=== PATIENT | male | born 1955 | race Caucasian/White ===

== ENCOUNTER → 2016-11-02 | Outpatient (CLI) | payer MEDICAID ==
[~2016-11-02] MED LIST: IOPAMIDOL (ISOVUE-300) 100 ML BTL IV ONE
== END ==
LOC: FIMAGING 14:35
PROVIDERS: ATTEND Internal Medicine Infectious Disease
DX: J01.00 Acute maxillary sinusitis, unspecified (principal); J43.2 Centrilobular emphysema; M47.892 Other spondylosis, cervical region
CPT/HCPCS: Q9967

== ENCOUNTER 2017-05-13 12:10 | Emergency (ER) | payer MEDICAID ==
--- NOTE | 2017-05-13 12:32 | EDPHY ---
H & P Time Seen by Provider: 05/13/17 12:17 HPI/ROS: Chief complaint. Back pain HPI. 7-year-old male with recurrent and chronic low back pain here with low back pain for 2 days. He was stretching and felt a snap in his right lower back. He describes the pain as stabbing. No radiation to his legs or leg weakness. No bowel or bladder symptoms. 3 previous back surgeries. He notes that his right foot is always numb and has been numb since before his last surgery in 1996. He is on chronic morphine. No fever.hurts to walk ROS Constitutional. no fever/chills, no weakness Eyes. no problems with vision ENT. no sore throat, no nasal drainage Cardiovascular. no chest pain Respiratory. no shortness of breath, no cough Abdominal. no abdominal pain, no nausea/vomiting, no diarrhea . no problems urinating MS. right lower back pain Skin. no rash Lymph. no swollen glands Neuro. Hurts to walk Past Medical/Surgical History: Chronic back pain with previous back surgeries. Hypertension Social History: Single, daily smoker, no alcohol Smoking Status: Heavy smoker Physical Exam: General Appearance: Alert well-developed male mild distress vital signs are stable Eyes: Pupils equal and round no pallor or injection. ENT, Mouth: Mucous membranes are moist. Respiratory: There are no retractions, lungs are clear to auscultation. Cardiovascular: Regular rate and rhythm. Gastrointestinal: Abdomen is soft and nontender, no masses, bowel sounds normal. Neurological: Awake and alert, sensory and motor exams grossly normal. Straight leg raising negative at both sides. Deep tendon reflexes are symmetrical. Great toe strength normal Skin: Warm and dry, no rashes. Musculoskeletal: Neck is supple nontender. Tender to palpation in the L1-L2 area on the right. No surface trauma. Extremities symmetrical, full range of motion. Psychiatric: Patient is oriented X 3, there is no agitation. Allergies/Adverse Reactions: acetaminophen [From Tylenol] Allergy (Intermediate, Verified 07/26/16 11:45) Vomiting Home Medications: Medication Instructions Recorded Cyclobenzaprine [Flexeril 10 MG 10 mg PO TID 07/26/16 (*)] Albuterol [Proventil Inhaler HFA 2 puffs IH Q4HRS PRN #1 mdi 08/17/16 (*)] Bacitracin Ointment 1 tania TP BID 30 Days pkt 08/17/16 DAPTOmycin [Cubicin 500mg vial (*)] 450 mg IV DAILY #0 vial 08/17/16 Fluconazole [Diflucan (*)] 400 mg PO DAILY #14 tab 08/17/16 Lisinopril [Zestril 5 mg (*)] 5 mg PO DAILY #30 tab 08/17/16 Naloxone HCl [Narcan] 0 mg IVP PRN PRN #7 inj 08/17/16 Nicotine [Nicoderm Cq 21 mg (*)] 21 mg TD DAILY #30 patch 08/17/16 Polyethylene Glycol 3350 [Miralax 17 gm PO DAILY PRN #20 pkt 08/17/16 17 gm (*)] Sennosides/Docusate Sodium 1 - 2 tab PO BID #60 tab 08/17/16 [Senokot-S] Sodium Cl Nasal Gel [[place] Saline 1 tania TP TID PRN 30 Days gel 08/17/16 Nasal Gel] clonazePAM [Klonopin (*)] 0.5 mg PO BID #60 tab 08/17/16 morphINE IR [morphINE IR 15 mg (*)] 15 - 30 mg PO Q4HRS PRN #60 tab 08/17/16 morphINE SR [MS Contin/Oramorph SR 60 mg PO BID #60 tab 08/17/16 30 mg (*)] oxyCODONE IR [Oxycodone Ir (*)] 5 mg PO Q6H 30 Days tab 08/17/16 CYCLOBENZAPRINE HCL [Flexeril] 5 mg PO TIDPRN PRN #10 tab 05/13/17 Lidocaine 5% [Lidoderm 5% Patch 1 ea TD DAILY #3 patch 05/13/17 (*)] Medical Decision Making Procedures: IM Toradol and lidocaine patch ED Course/Re-evaluation: Re-evaluation patient is stable. He and I discussed treatment plan including criteria for return importance of follow-up and further evaluation. He expresses understanding and agreement Differential Diagnosis: No evidence for cauda equina syndrome or radiculopathy. This is likely muscular strain. Departure - Departure Disposition: Home, Routine, Self-Care Clinical Impression: Acute lumbar myofascial strain Qualifiers: Encounter type: initial encounter Qualified Code(s): S39.012A - Strain of muscle, fascia and tendon of lower back, initial encounter Condition: Good Instructions: Low Back Strain (ED) Additional Instructions: Continue your regularly prescribed morphine. Ibuprofen 600 mg every 6 hours as needed for pain in addition. Lidocaine patch. Flexeril as muscle relaxer. Return for leg weakness or bowel or bladder symptoms. Follow up with Neurosurgery in 2-3 days if not improving Referrals: Patient,NotPresent [Primary Care Provider] - As per Instructions Oswald Valdes MD [Medical Doctor] - 2-3 days, if not improved Prescriptions: CYCLOBENZAPRINE HCL [Flexeril] 5 mg PO TIDPRN PRN #10 tab PRN Reason: Spasms Lidocaine 5% [Lidoderm 5% Patch (*)] 1 ea TD DAILY #3 patch
[2017-05-13] MEDS ORDERED: KETOROLAC 15 MG/1 ML SDV IM ONE (12:51)
[2017-05-13] MEDS ORDERED: LIDOCAINE 5% 1 EA PATCH TD ONE (12:51)
[2017-05-13 13:48] VITALS: BP 117/81; PULSE 81; RESP 16; O2SAT 94
[2017-05-13] MEDS ORDERED: PATCH REMOVAL 1 EA PATCH TD SCH (21:00)
--- NOTE | 2017-05-14 17:06 | ASDISCHSUM ---
Discharge Information Plan Status:SNF Medically Cleared to Leave: Discharge Date: CM D/C Disposition: ADT D/C Disposition:Home, Routine, Self-Care Projected Discharge Date: Transportation at D/C: Discharge Delay Reason: Follow-Up Date: Discharge Slot: Final Diagnosis: Placement Information Patient Contact Information Contact Name:NAIFZENAIDA Relationship: Address: Home Phone: Work Phone: City: Alternate Phone: [email or web address] Code: Email: Financial Information Financial Class: Primary Plan Desc:[employer] Primary Plan Number:[id number] Secondary Plan Desc: Secondary Plan Number: Assessment Information Intervention Information Intervention Type:Transportation Date of Service:05/13/2017 01:59 PM Patient Type:Emergency Room Staff Member:Sean Alaniz Hours: Discipline: Severity: Comment:
== END 2017-05-13 13:45 | disposition home or self-care (01) ==
LOC: EDUNIT#
DX: S39.012A Strain of muscle, fascia and tendon of lower back, initial encounter (principal); F17.200 Nicotine dependence, unspecified, uncomplicated; I10 Essential (primary) hypertension; X58.XXXA Exposure to other specified factors, initial encounter
CPT/HCPCS: J1885

== ENCOUNTER 2017-05-22 07:13 | Emergency (ER) | payer MEDICAID ==
[2017-05-22 07:24] VITALS: BP 163/100; PULSE 76; RESP 16; TEMP 97.9; O2SAT 97
[2017-05-22] MEDS ORDERED: KETOROLAC 30 MG/1 ML SDV IVP ONE (07:26)
--- NOTE | 2017-05-22 07:29 | EDPHY ---
H & P Stated Complaint: Neck and back pain, out of medications. Time Seen by Provider: 05/22/17 07:13 HPI/ROS: CHIEF COMPLAINT: Chronic leg pain HISTORY OF PRESENT ILLNESS: The patient is a 61-year-old man who comes to the emergency department by EMS requesting narcotics for chronic leg pain. He states that he was at [facility] after extensive I and D and skin flap to his right leg due to abscesses. He also had an abscess to his neck that was I&D 'd. He states that he was kicked out of [facility] on and they told him that he cannot have any pain medications. Up until that point he had been on Klonopin and morphine. He will not disclose to me who his doctor is. He denies any recent trauma. No fevers. He called the ambulance this morning because he states he cannot tolerate the pain. REVIEW OF SYSTEMS: Constitutional: denies: chills, fever, recent illness, recent injury EENTM: denies: blurred vision, double vision, nose congestion Respiratory: denies: cough, shortness of breath Cardiac: denies: chest pain, irregular heart rate, lightheadedness, palpitations Gastrointestinal/Abdominal: denies: abdominal pain, diarrhea, nausea, vomiting, blood streaked stools Genitourinary: denies: dysuria, frequency, hematuria, pain Musculoskeletal: See HPI Skin: denies: lesions, rash, jaundice, bruising Neurological: denies: headache, numbness, paresthesia, tingling, dizziness, weakness Hematologic/Lymphatic: denies: blood clots, easy bleeding, easy bruising Immunologic/allergic: denies: HIV/AIDS, transplant EXAM: GENERAL: Well-appearing, well-nourished and in no acute distress. HEAD: Atraumatic, normocephalic. EYES: Pupils equal round and reactive to light, extraocular movements intact, sclera anicteric, conjunctiva are normal. ENT: TMs normal, nares patent, oropharynx clear without exudates. Moist mucous membranes. NECK: Normal range of motion, supple without lymphadenopathy or JVD. LUNGS: Breath sounds clear to auscultation bilaterally and equal. No wheezes rales or rhonchi. HEART: Regular rate and rhythm without murmurs, rubs or gallops. ABDOMEN: Soft, nontender, normoactive bowel sounds. No guarding, no rebound. No masses appreciated. BACK: No CVA tenderness, no spinal tenderness, step-offs or deformities EXTREMITIES: Normal range of motion, no pitting or edema. No clubbing or cyanosis. NEUROLOGICAL: Cranial nerves II through XII grossly intact. Normal speech, walks with a walker . 5/5 strength, normal movement in all extremities, normal sensation PSYCH: Normal mood, normal affect. SKIN: Old surgical scars to both legs and left anterior neck. Well-healed. No erythematous Source: Patient Exam Limitations: No limitations - Personal History Current Tetanus Diphtheria and Acellular Pertussis (TDAP): Yes Tetanus Vaccine Date: 2015 - Medical/Surgical History Hx Asthma: No Hx Chronic Respiratory Disease: No Hx Diabetes: No Hx Cardiac Disease: Yes Hx Renal Disease: No Hx Cirrhosis: No Hx Alcoholism: No Hx HIV/AIDS: No Hx Splenectomy or Spleen Trauma: No Other PMH: HTN, 3 AK'S, STENTS X2, HEP C, fractured Jaw-March,, X3 BACK SURGERIES, IVDA - Family History Significant Family History: No pertinent family hx - Social History Smoking Status: Heavy smoker Alcohol Use: Sober Drug Use: None Constitutional: Initial Vital Signs Temperature (C) 36.6 C 05/22/17 07:22 Heart Rate 76 05/22/17 07:22 Respiratory Rate 16 05/22/17 07:22 Blood Pressure 163/100 H 05/22/17 07:22 O2 Sat (%) 97 05/22/17 07:22 O2 Delivery Mode Room Air Allergies/Adverse Reactions: acetaminophen [From Tylenol] Allergy (Intermediate, Verified 07/26/16 11:45) Vomiting Home Medications: Medication Instructions Recorded Cyclobenzaprine [Flexeril 10 MG 10 mg PO TID 07/26/16 (*)] Albuterol [Proventil Inhaler HFA 2 puffs IH Q4HRS PRN #1 mdi 08/17/16 (*)] Bacitracin Ointment 1 tania TP BID 30 Days pkt 08/17/16 DAPTOmycin [Cubicin 500mg vial (*)] 450 mg IV DAILY #0 vial 08/17/16 Fluconazole [Diflucan (*)] 400 mg PO DAILY #14 tab 08/17/16 Lisinopril [Zestril 5 mg (*)] 5 mg PO DAILY #30 tab 08/17/16 Naloxone HCl [Narcan] 0 mg IVP PRN PRN #7 inj 08/17/16 Nicotine [Nicoderm Cq 21 mg (*)] 21 mg TD DAILY #30 patch 08/17/16 Polyethylene Glycol 3350 [Miralax 17 gm PO DAILY PRN #20 pkt 08/17/16 17 gm (*)] Sennosides/Docusate Sodium 1 - 2 tab PO BID #60 tab 08/17/16 [Senokot-S] Sodium Cl Nasal Gel [[place] Saline 1 tania TP TID PRN 30 Days gel 08/17/16 Nasal Gel] clonazePAM [Klonopin (*)] 0.5 mg PO BID #60 tab 08/17/16 morphINE IR [morphINE IR 15 mg (*)] 15 - 30 mg PO Q4HRS PRN #60 tab 08/17/16 morphINE SR [MS Contin/Oramorph SR 60 mg PO BID #60 tab 08/17/16 30 mg (*)] oxyCODONE IR [Oxycodone Ir (*)] 5 mg PO Q6H 30 Days tab 08/17/16 CYCLOBENZAPRINE HCL [Flexeril] 5 mg PO TIDPRN PRN #10 tab 05/13/17 Lidocaine 5% [Lidoderm 5% Patch 1 ea TD DAILY #3 patch 05/13/17 (*)] Medical Decision Making ED Course/Re-evaluation: The patient was offered alternatives to opiates here in the emergency department. He refused this and states that none of them work. We discussed our policy a not prescribing narcotics for chronic pain. The patient is frustrated with this. He initially refused any other type of medication but eventually consented to Toradol. He denies having any new or changed symptoms. I will have him follow up with his primary care physician. Differential Diagnosis: Partial list of the Differential diagnosis considered include but were not limited to; opiate addiction, chronic pain, infection and although unlikely based on the history and physical exam, I also considered radiculopathy, head injury. I discussed these differential diagnoses and the plan with the patient as well as the usual and expected course. The patient understands that the diagnosis is provisional and that in medicine we are not always correct and that further workup is often warranted. Usual and customary warnings were given. All of the patient's questions were answered. The patient was instructed to return to the emergency department should the symptoms at all worsen or return, otherwise to followup with the physician as we discussed. Departure - Departure Disposition: Against Medical Advice Clinical Impression: Chronic pain Qualifiers: Chronic pain type: chronic pain syndrome Qualified Code(s): G89.4 - Chronic pain syndrome Condition: Fair Instructions: Chronic Pain (ED) Referrals: Patient,NotPresent [Unknown] - As per Instructions Mariama Turner MD [Medical Doctor] - As per Instructions
== END 2017-05-22 07:47 | disposition left against medical advice (07) ==
LOC: EDUNIT#
DX: M79.604 Pain in right leg (principal); G89.4 Chronic pain syndrome; I10 Essential (primary) hypertension; I25.2 Old myocardial infarction; F17.200 Nicotine dependence, unspecified, uncomplicated; Z95.5 Presence of coronary angioplasty implant and graft
CPT/HCPCS: J1885

== ENCOUNTER 2017-05-22 14:03 | Emergency (ER) | payer MEDICAID ==
--- NOTE | 2017-05-22 14:07 | EDPHY ---
H & P HPI/ROS: CHIEF COMPLAINT: Opiate withdrawal HISTORY OF PRESENT ILLNESS: The patient is a 61-year-old male who returns to the emergency department with opiate withdrawal. The patient was seen here earlier requesting narcotics for his chronic pain. The patient was offered alternatives to opiates, the patient consented to Toradol, but left before he received the medication. The patient states he is in opiate withdrawal. He last used narcotics 4 days ago. He has since developed diaphoresis, diarrhea, and insomnia. REVIEW OF SYSTEMS: A comprehensive 10 point review of systems is otherwise negative aside from elements mentioned in the history of present illness. Past Medical/Surgical History: Chronic pain, HTN, 3 [place]'s, stents x2, Hepatitis C, Fractured jaw, back surgeries x3, IVDA. Social History: Living with friend Smoking Status: Heavy smoker Physical Exam: General Appearance: Alert, angry Eyes: Pupils equal and round, no conjunctival pallor or injection ENT, Mouth: Mucous membranes moist Neck: Normal inspection Respiratory: Lungs are clear to auscultation Cardiovascular: Regular rate and rhythm Gastrointestinal: Abdomen is soft and non-tender Neurological: A&O, nonfocal, normal gait Skin: Warm and dry, no rash Extremities: Nontender, no pedal edema Psychiatric: agitated at times, calm at other times Constitutional: Initial Vital Signs Temperature (C) 36.7 C 05/22/17 14:12 Heart Rate 60 05/22/17 14:12 Respiratory Rate 16 05/22/17 14:12 Blood Pressure 160/110 H 05/22/17 14:12 O2 Sat (%) 97 05/22/17 14:12 O2 Delivery Mode Room Air Allergies/Adverse Reactions: acetaminophen [From Tylenol] Allergy (Intermediate, Verified 07/26/16 11:45) Vomiting Home Medications: Medication Instructions Recorded Cyclobenzaprine [Flexeril 10 MG 10 mg PO TID 07/26/16 (*)] Albuterol [Proventil Inhaler HFA 2 puffs IH Q4HRS PRN #1 mdi 08/17/16 (*)] Bacitracin Ointment 1 tania TP BID 30 Days pkt 08/17/16 DAPTOmycin [Cubicin 500mg vial (*)] 450 mg IV DAILY #0 vial 08/17/16 Fluconazole [Diflucan (*)] 400 mg PO DAILY #14 tab 08/17/16 Lisinopril [Zestril 5 mg (*)] 5 mg PO DAILY #30 tab 08/17/16 Naloxone HCl [Narcan] 0 mg IVP PRN PRN #7 inj 08/17/16 Nicotine [Nicoderm Cq 21 mg (*)] 21 mg TD DAILY #30 patch 08/17/16 Polyethylene Glycol 3350 [Miralax 17 gm PO DAILY PRN #20 pkt 08/17/16 17 gm (*)] Sennosides/Docusate Sodium 1 - 2 tab PO BID #60 tab 08/17/16 [Senokot-S] Sodium Cl Nasal Gel [[place] Saline 1 tania TP TID PRN 30 Days gel 08/17/16 Nasal Gel] clonazePAM [Klonopin (*)] 0.5 mg PO BID #60 tab 08/17/16 morphINE IR [morphINE IR 15 mg (*)] 15 - 30 mg PO Q4HRS PRN #60 tab 08/17/16 morphINE SR [MS Contin/Oramorph SR 60 mg PO BID #60 tab 08/17/16 30 mg (*)] oxyCODONE IR [Oxycodone Ir (*)] 5 mg PO Q6H 30 Days tab 08/17/16 CYCLOBENZAPRINE HCL [Flexeril] 5 mg PO TIDPRN PRN #10 tab 05/13/17 Lidocaine 5% [Lidoderm 5% Patch 1 ea TD DAILY #3 patch 05/13/17 (*)] Medical Decision Making ED Course/Re-evaluation: The patient returns to the emergency department stating he is in opiate withdrawal. He is now quite angry that we will not prescribe narcotics. The patient has asked me about our narcotic policy. I explained we do not give narcotics for chronic pain in this emergency department. The patient is requesting a patient advocate. Case management will meet with the patient. There is no evidence of opiate w/d'l on exam. I will d/c him from the ED. Departure - Departure Disposition: Home, Routine, Self-Care Clinical Impression: Opiate withdrawal Condition: Good Instructions: Opioid Withdrawal (ED) Additional Instructions: Please follow up with [facility] as needed. [facility] has walk-in appointments for the homeless at the following days/locations. No appointment is needed. Monday 8-10 am @ [facility] 11 AM-1 PM @ [facility] Monday 8-10:30 AM @ [facility] Monday 8-10 AM @ [facility] 2-4 PM @ [facility] Monday 8-10 AM @ [facility] Referrals: [facility],. [Clinic] - As per Instructions Report Scribed for: Raven Garcia Report Scribed by: Jennie Cruz Date of Report: 05/22/17 Time of Report: 14:10 Physician Review and Approval Statement: 05/22/17 14:10 Portions of this note were transcribed by a medical/surgery registered nurse. I personally performed the history, physical exam, and medical decision-making; and confirmed the accuracy of the information in the transcribed note.
[2017-05-22 14:14] VITALS: BP 160/110; PULSE 60; RESP 16; TEMP 98.1; O2SAT 97
== END 2017-05-22 14:52 | disposition home or self-care (01) ==
LOC: EDUNIT#
DX: F11.23 Opioid dependence with withdrawal (principal); I10 Essential (primary) hypertension; F17.200 Nicotine dependence, unspecified, uncomplicated; I25.2 Old myocardial infarction; Z95.5 Presence of coronary angioplasty implant and graft

== ENCOUNTER 2017-05-22 15:36 | Emergency (ER) | payer MEDICAID ==
[2017-05-22 15:53] VITALS: RESP 16; TEMP 97.7
[2017-05-22 16:29] LABS: % IMMATURE GRANULYOCYTES 0.2 % (0.0-1.1); ABSOLUTE IMMATURE GRANULOCYTES 0.01 10^3/uL (0.00-0.10); ADD DIFF? NO; ADD MORPH? NO; ADD SCAN? NO; ATYPICAL LYMPHOCYTE FLAG 10 (0-99); FRAGMENT RBC FLAG 0 (0-99); HEMATOCRIT 50.4 % (40.0-51.0); LEFT SHIFT FLG 0 (0-99); LIPEMIA HEMOLYSIS FLAG 80 (0-99); MEAN CELL HEMOGLOBIN 30.2 pg (27.9-34.1); MEAN CELL HEMOGLOBIN CONCENTR. 33.7 g/dL (32.4-36.7); MEAN CELL VOLUME 89.7 fL (81.5-99.8); PLATELET CLUMPS FLAG 10 (0-99); PLATELET COUNT 260 10^3/uL (150-400); RED BLOOD CELL COUNT 5.62 10^6/uL (4.40-6.38); RED CELL DISTRIBUTION WIDTH 12.9 % (11.5-15.2)
--- NOTE | 2017-05-22 16:39 | EDPHY ---
H & P Time Seen by Provider: 05/22/17 16:07 HPI/ROS: CHIEF COMPLAINT: Medical clearance HISTORY OF PRESENT ILLNESS: The patient is a 61-year-old male with chronic back pain who returns for the third time today. The patient was seen earlier for chronic leg pain and was requesting narcotics. He returned later with opiate withdrawal. He did not explain at that time that he was to go to respite care. He returns to be medically cleared. [facility] have arranged for the patient to go to respite care. REVIEW OF SYSTEMS: A comprehensive 10 point review of systems is otherwise negative aside from elements mentioned in the history of present illness. Past Medical/Surgical History: HTN, 3 [place]'s, Stents x2, Hep C, Fractured jaw, Back surgeries x3, IVDA. Social History: Lives with friend. Smoking Status: Heavy smoker Physical Exam: General Appearance: Alert, cooperative Eyes: Pupils equal and round, no conjunctival pallor ENT, Mouth: Mucous membranes moist Neck: Normal inspection Respiratory: Lungs are clear to auscultation Cardiovascular: Regular rate and rhythm Gastrointestinal: Abdomen is soft and non-tender Neurological: A&O, nonfocal, normal gait Skin: Warm and dry, no rash Extremities: Nontender, no pedal edema Psychiatric: Mood and affect normal Constitutional: Initial Vital Signs Temperature (C) 36.5 C 05/22/17 15:50 Heart Rate 58 L 05/22/17 15:50 Respiratory Rate 16 05/22/17 15:50 Blood Pressure 160/109 H 05/22/17 15:50 O2 Sat (%) 97 05/22/17 15:50 O2 Delivery Mode Room Air Allergies/Adverse Reactions: acetaminophen [From Tylenol] Allergy (Intermediate, Verified 07/26/16 11:45) Vomiting Home Medications: Medication Instructions Recorded Cyclobenzaprine [Flexeril 10 MG 10 mg PO TID 07/26/16 (*)] Albuterol [Proventil Inhaler HFA 2 puffs IH Q4HRS PRN #1 mdi 08/17/16 (*)] Bacitracin Ointment 1 tania TP BID 30 Days pkt 08/17/16 DAPTOmycin [Cubicin 500mg vial (*)] 450 mg IV DAILY #0 vial 08/17/16 Fluconazole [Diflucan (*)] 400 mg PO DAILY #14 tab 08/17/16 Lisinopril [Zestril 5 mg (*)] 5 mg PO DAILY #30 tab 08/17/16 Naloxone HCl [Narcan] 0 mg IVP PRN PRN #7 inj 08/17/16 Nicotine [Nicoderm Cq 21 mg (*)] 21 mg TD DAILY #30 patch 08/17/16 Polyethylene Glycol 3350 [Miralax 17 gm PO DAILY PRN #20 pkt 08/17/16 17 gm (*)] Sennosides/Docusate Sodium 1 - 2 tab PO BID #60 tab 08/17/16 [Senokot-S] Sodium Cl Nasal Gel [[place] Saline 1 tania TP TID PRN 30 Days gel 08/17/16 Nasal Gel] clonazePAM [Klonopin (*)] 0.5 mg PO BID #60 tab 08/17/16 morphINE IR [morphINE IR 15 mg (*)] 15 - 30 mg PO Q4HRS PRN #60 tab 08/17/16 morphINE SR [MS Contin/Oramorph SR 60 mg PO BID #60 tab 08/17/16 30 mg (*)] oxyCODONE IR [Oxycodone Ir (*)] 5 mg PO Q6H 30 Days tab 08/17/16 CYCLOBENZAPRINE HCL [Flexeril] 5 mg PO TIDPRN PRN #10 tab 05/13/17 Lidocaine 5% [Lidoderm 5% Patch 1 ea TD DAILY #3 patch 05/13/17 (*)] Medical Decision Making ED Course/Re-evaluation: The patient returns for medical clearance. [facility] to go to respite care. I ordered lab work and urinalysis. Lab work is unremarkable. Creatinine is slightly low at 0.6. The patient is drinking water, UA is pending. UA is positive for opiates, methamphetamine, and marijuana. The patient is medically cleared by me. He was transported to respite care by taxi. - Data Points Laboratory Results: Laboratory Results 05/22/17 16:20 05/22/17 16:20 Medications Given: Discontinued Medications Zolpidem Tartrate (Ambien) 10 mg PO EDNOW ONE Stop: 05/22/17 19:07 Last Admin: 05/22/17 19:15 Dose: 10 mg Departure - Departure Disposition: Home, Routine, Self-Care Clinical Impression: medical clearance Condition: Good Instructions: Opioid Withdrawal (ED) Additional Instructions: Follow up at respite care as planned. Referrals: NONE *PRIMARY CARE P,. [Primary Care Provider] - As per Instructions Report Scribed for: Raven Garcia Report Scribed by: Jennie Cruz Date of Report: 05/22/17 Time of Report: 16:44 Physician Review and Approval Statement: 05/22/17 16:44 Portions of this note were transcribed by a expert medical writer. I personally performed the history, physical exam, and medical decision-making; and confirmed the accuracy of the information in the transcribed note.
[2017-05-22 16:43] LABS: ANION GAP 14 mEq/L (8-16); CALCIUM 10.1 mg/dL (8.5-10.4); CARBON DIOXIDE 25 mEq/l (22-31); CHLORIDE 104 mEq/L (97-110); CREATININE 0.6 mg/dL (0.7-1.3); ETHANOL SERUM < 10 mg/dL (0-10); GLOMERULAR FILTRATION RATE > 60; GLUCOSE 84 mg/dL (70-100); POTASSIUM 3.9 mEq/L (3.5-5.2); SODIUM 143 mEq/L (134-144)
[2017-05-22] MEDS: ZOLPIDEM TARTRATE 5 MG TAB PO ONE (19:15)
[2017-05-22 19:19] VITALS: BP 160/99; PULSE 57; O2SAT 95
== END 2017-05-22 19:18 | disposition home or self-care (01) ==
DX: Z04.8 Encounter for examination and observation for other specified reasons (principal); I10 Essential (primary) hypertension; I25.2 Old myocardial infarction; F17.200 Nicotine dependence, unspecified, uncomplicated; Z95.5 Presence of coronary angioplasty implant and graft
CPT/HCPCS: 80305; G0480

== ENCOUNTER 2018-05-09 13:29 | Inpatient (IN) | payer MEDICAID ==
--- NOTE | 2018-05-09 13:57 | EDPHY ---
HPI/HX/ROS/PE/MDM Narrative: CHIEF COMPLAINT: Polysubstance overdose HISTORY OF PRESENT ILLNESS: This patient is a 62 year-old male arriving via EMS for evaluation of altered mental status following a possible polysubstance overdose. He was found by EMS with narcotics around him. He follows up at a local pain clinic and is prescribed methadone. The patient states he only took methadone today. EMS gave Narcan in transport. The patient complains of abdominal and chest pain. He has a wet, productive cough. No fever, chills, palpitations, vomiting, diarrhea, urinary complaints, headache, lightheadedness. Further HPI unobtainable due to patient's altered mental status. REVIEW OF SYSTEMS: A comprehensive 10 system review of systems was unobtainable due to patient's altered mental status. PAST MEDICAL HISTORY: Hypertension. Prior [place] s/p stent placement. Hep C. Fractured jaw. Back surgeries x3. IVDA. SOCIAL HISTORY: Current cigarette smoker. Endorses marijuana and occasional alcohol use. History of polysubstance abuse. VITAL SIGNS: Reviewed by me 192/113, respiratory rate of 24, O2 sat 87% on room air. GENERAL: Somnolent, uncomfortable-appearing. HEENT: Healing laceration over the right eye with mild swelling. Healing abrasions to nasal bridge and left forehead. Eyes: Pupils dilated bilaterally. No icterus, no injection. Mouth: green coating on tongue. moist mucous membranes. No erythema or lesions. Neck: supple with no adenopathy. LUNGS: Increased respiratory effort. Expiratory wheezes. Coarse rhonchi throughout. CARDIAC: Regular rate and rhythm, no rubs, murmurs or gallops. ABDOMEN: Soft, nontender, nondistended, bowel sounds normal. BACK: No CVA tenderness. EXTREMITIES: No trauma. No edema. Range of motion is normal throughout. NEURO: Oriented to person and place. Grossly nonfocal. SKIN: Erythema over sternum from sternal rub. Warm and dry, no rash. PSYCHIATRIC: Normal mentation, no agitation. Portions of this note were transcribed by a medical transcription supervisor. I personally performed a history, physical exam, medical decision making, and confirmed accuracy of information the transcribed note. ED Course: 62 y/o male presents via EMS with altered mental status, hypoxemia. SpO2 87% on arrival, patient is currently on supplemental oxygen with saturations in the low 90s. Plan for labs including CBC, chemistries, liver, lipase, troponin, EtOH. 14:32 Reviewed CXR. Patchy infiltrate in the left lower lobe. 14:[address] Dowell, radiologist. CT head negative for acute processes. Tox screen positive for benzodiazepines, marijuana. Sepsis Evaluation Note: The patient presents to the ED with potential infection identified as pneumonia. Patient did have evidence of sepsis with hypoxia, tachycardia, tachypnea. No evidence of severe sepsis. Patient was given levofloxacin. Plan to admit for pneumonia, hypoxemia, polysubstance abuse. 15:27 Spoke with hospitalist service. Dr. Delcid accepts admission. MDM: After the history was obtained and physical exam performed, the following differential for the patient's altered mental status, and hypoxia, was considered included but was not limited to intracranial hemorrhage, infection, tumor, drug or alcohol intoxication, electrolyte abnormalities. - Data Points Imaging Results: CXR: Impression: 1. Patchy infiltrate/consolidation versus atelectasis left lower lobe. 2. Prominence of the pulmonary vasculature centrally. Consider pulmonary hypertension. Dictated By: Henok Watson MD Head CT Impression: There is no acute intracranial abnormality identified on this unenhanced CT evaluation. If there is further clinical concern regarding the patient's symptoms, MR imaging is suggested, if not otherwise contraindicated. Findings were discussed with Tomeka Baptiste MD at 14:32, on 05/09/2018. Dictated By: Shamar Dowell MD Imaging: Discussed imaging studies w/ banquet server on call Radiologist, I viewed and interpreted images myself Laboratory Results: Laboratory Results 05/09/18 13:40 Medications Given: Albuterol/Ipratropium (Duoneb) 3 ml IH QID EFRAIN Stop: 11/05/18 15:59 Last Admin: 05/12/18 16:24 Dose: Not Given Clonidine (Catapres) 0.1 mg PO BID EFRAIN Stop: 11/06/18 09:14 Last Admin: 05/12/18 09:23 Dose: 0.1 mg Azithromycin 500 mg/ Sodium (Chloride) 255 mls @ 255 mls/hr IV DAILY EFRAIN PRN Reason: Protocol Stop: 06/09/18 08:59 Last Admin: 05/12/18 09:22 Dose: 255 mls Ceftriaxone Sodium/Dextrose (Rocephin 1 Gm (Premix)) 50 mls @ 100 mls/hr IV DAILY EFRAIN PRN Reason: Protocol Stop: 06/08/18 16:29 Last Admin: 05/12/18 09:22 Dose: 50 mls Ibuprofen (Motrin) 400 mg PO Q6HRS PRN PRN Reason: Pain, Mild Stop: 11/06/18 09:08 Last Admin: 05/10/18 09:16 Dose: 400 mg Lorazepam (Ativan) 0.5 - 1 mg PO Q8HRS PRN PRN Reason: Anxiety, Able to Take PO Stop: 11/05/18 15:57 Last Admin: 05/12/18 19:36 Dose: 1 mg Methocarbamol (Robaxin) 750 mg PO TID EFRAIN Stop: 11/06/18 15:59 Last Admin: 05/12/18 16:12 Dose: 750 mg Oxycodone HCl (Oxycodone Ir) 5 - 10 mg PO Q3HRS PRN PRN Reason: Pain, Severe Able to Take PO Stop: 05/19/18 15:57 Last Admin: 05/11/18 20:10 Dose: 5 mg Discontinued Medications Albuterol (Proventil Neb) 3 ml IH EDNOW ONE Stop: 05/09/18 15:27 Last Admin: 05/09/18 17:37 Dose: Not Given Sodium Chloride (Ns) 1,000 mls @ 0 mls/hr IV EDNOW ONE; Wide Open PRN Reason: Protocol Stop: 05/09/18 14:16 Last Admin: 05/09/18 14:17 Dose: 1,000 mls Levofloxacin/Dextrose (Levaquin 750 Mg (Premix)) 150 mls @ 100 mls/hr IV EDNOW ONE PRN Reason: Protocol Stop: 05/09/18 16:53 Last Admin: 05/09/18 16:37 Dose: 150 mls Methadone HCl (Dolophine) 85 mg PO DAILY EFRAIN Stop: 05/20/18 10:29 Last Admin: 05/12/18 09:46 Dose: 85 mg General Time Seen by Provider: 05/09/18 13:48 Initial Vital Signs: Initial Vital Signs Temperature (C) 36.6 C 05/09/18 13:40 Heart Rate 99 05/09/18 13:40 Respiratory Rate 24 H 05/09/18 13:40 Blood Pressure 192/113 H 05/09/18 13:40 O2 Sat (%) 87 L 05/09/18 13:40 O2 Delivery Mode Nasal Cannula O2 (L/minute) 3 Allergies/Adverse Reactions: acetaminophen [From Tylenol] Allergy (Intermediate, Verified 07/26/16 11:45) Vomiting Home Medications: Medication Instructions Recorded Albuterol [Proventil Inhaler HFA 2 puffs IH Q4HRS PRN #1 mdi 08/17/16 (*)] Naloxone HCl [Narcan] 0 mg IVP PRN PRN #7 inj 08/17/16 Sodium Cl Nasal Gel [[place] Saline 1 tania TP TID PRN 30 Days gel 08/17/16 Nasal Gel] Methadone HCl [Dolophine Intensol 95 mg PO DAILY 05/09/18 10 mg/ml (*)] Departure - Departure Disposition: [facility] Inpatient Acute Clinical Impression: Polysubstance abuse, Hypoxemia Pneumonia Qualifiers: Pneumonia type: aspiration pneumonia Aspiration pneumonia type: unspecified Laterality: bilateral Lung location: unspecified part of lung Qualified Code(s) : J69.0 - Pneumonitis due to inhalation of food and vomit Condition: Fair Report Scribed for: Tomeka Baptiste Report Scribed by: Yina Honeycutt Date of Report: 05/09/18 Time of Report: 17:10
[2018-05-09 14:14] LABS: PLATELET COUNT 239 10^3/uL (150-400)
[2018-05-09] MEDS ORDERED: NS 1,000 ML IV ONE (14:15)
[2018-05-09] MEDS ORDERED: ALBUTEROL 3 ML DEYVIAL IH ONE (15:26)
[2018-05-09 15:45] LABS: INR 1.08 (0.83-1.16); PROTIME(PATIENT) 14.2 SEC (12.0-15.0)
[2018-05-09] MEDS ORDERED: oxyCODONE IR 5 MG TAB PO PRN (15:58)
[2018-05-09] MEDS ORDERED: ONDANSETRON 4 MG/2 ML VIAL IVP PRN (15:58)
[2018-05-09] MEDS ORDERED: ACETAMINOPHEN 325 MG TAB PO PRN (15:58)
[2018-05-09] MEDS ORDERED: ONDANSETRON DISINTEGRATING 4 MG TAB PO PRN (15:58)
[2018-05-09] MEDS ORDERED: ALBUTEROL 3 ML DEYVIAL IH PRN (15:58)
[2018-05-09] MEDS ORDERED: PROMETHAZINE HCL 25 MG/ML INJ IVP PRN (15:58)
[2018-05-09] MEDS ORDERED: HYDROCODONE/APAP 5/325 TAB PO PRN (15:58)
--- NOTE | 2018-05-09 16:26 | PDGENHP ---
History and Physical - Chief Complaint don't feel good - History of Present Illness 62 yo M with a PMH of opiate use disorder in methadone treatment presenting with AMS and found to be hypoxic with evidence of pna in ER. Initially patient was essentially unresponsive, given narcan with minimal improvement in his mental status. At the time of my evaluation, patient is somnolent but able to answer questions appropriately, he does note that he does not feel that his ' head is right' still and the history is limited by his memory at this time. He states he has kelly feeling badly for the last week, largely with abdominal pain and vomiting. He also admits that he has had issues with shortness of breath and cough. He has been using drugs over the last week in addition to his methadone, he notes that he also has been shooting heroin and oxycodone but also other things that he is vague about--he notes he does not like speed though and avoids meth. He does also occasionally drink and smoking MJ. He states without reference to anything really that he "wants to " and states that he has overdosed in the past at times on purpose, but denies that he did that today. He states he is not sure why he was so somnolent today, but does admit to the nurse that he shot up today. He denies active SI or intent to harm himself. History Information - Allergies/Home Medication List Allergies/Adverse Reactions: acetaminophen [From Tylenol] Allergy (Intermediate, Verified 07/26/16 11:45) Vomiting Home Medications: Methadone HCl [Dolophine Intensol 10 mg/ml (*)] 95 mg PO DAILY 05/09/18 [Last Taken 05/09/18] I have personally reviewed and updated: family history, medical history, social history, surgical history - Past Medical History coronary artery disease ( Status post reported MIs), hypertension Additional medical history: peripheral neuropathy, hepatitis-C virus. polysubstance abuse--opiate use disorder with IVDA, continued despite methadone management - Surgical History Additional surgical history: back surgery - Family History Positive for: cancer (believes his parents of cancer but is not sure) Additional family history: patient does not know his family's medical history - Social History Smoking Status: Heavy smoker Alcohol Use: Occasionally Drug Use: Heroin, Marijuana Additional social history: states he lives in his own apartment [address] but is afraid he will be homeless after this due to the drug use Review of Systems Review of Systems: ROS: 10pt was reviewed & negative except for what was stated in HPI & below Physical Exam Physical Exam: Temp Pulse Resp BP Pulse Ox 37.4 C 88 22 H 157/103 H 96 05/09/18 16:03 05/09/18 16:03 05/09/18 16:03 05/09/18 16:03 05/09/18 16:03 O2 (L/minute) 3 Constitutional: no apparent distress, unkempt Eyes: PERRL, anicteric sclera Ears, Nose, Mouth, Throat: moist mucous membranes, hearing normal, poor dentition Cardiovascular: regular rate and rhythym, no murmur, rub, or gallop, No edema Respiratory: reduced air movement, inspiratory crackles, rhonchi Gastrointestinal: normoactive bowel sounds, soft, non-tender abdomen Genitourinary: no bladder tenderness Skin: warm, normal color, other (track castellon antecubital region, tattoos on chest) Musculoskeletal: full muscle strength Neurologic: AAOx3 Psychiatric: interacting appropriately, not anxious, not encephalopathic Lab Data & Imaging Review 05/09/18 Unknown 05/09/18 13:40 WBC 9.84 10^3/uL (3.80-9.50) H 05/09/18 Unknown RBC 5.62 10^6/uL (4.40-6.38) 05/09/18 Unknown Hgb 16.6 g/dL (13.7-17.5) 05/09/18 Unknown Hct 50.6 % (40.0-51.0) 05/09/18 Unknown MCV 90.0 fL (81.5-99.8) 05/09/18 Unknown MCH 29.5 pg (27.9-34.1) 05/09/18 Unknown MCHC 32.8 g/dL (32.4-36.7) 05/09/18 Unknown RDW 13.2 % (11.5-15.2) 05/09/18 Unknown Plt Count 239 10^3/uL (150-400) 05/09/18 Unknown MPV 9.8 fL (8.7-11.7) 05/09/18 Unknown Neut % (Auto) 66.6 % (39.3-74.2) 05/09/18 Unknown Lymph % (Auto) 25.6 % (15.0-45.0) 05/09/18 Unknown [place] % (Auto) 6.0 % (4.5-13.0) 05/09/18 Unknown Eos % (Auto) 1.1 % (0.6-7.6) 05/09/18 Unknown Baso % (Auto) 0.4 % (0.3-1.7) 05/09/18 Unknown Nucleat RBC Rel Count 0.0 % (0.0-0.2) 05/09/18 Unknown Absolute Neuts (auto) 6.55 10^3/uL (1.70-6.50) H 05/09/18 Unknown Absolute Lymphs (auto) 2.52 10^3/uL (1.00-3.00) 05/09/18 Unknown Absolute Monos (auto) 0.59 10^3/uL (0.30-0.80) 05/09/18 Unknown Absolute Eos (auto) 0.11 10^3/uL (0.03-0.40) 05/09/18 Unknown Absolute Basos (auto) 0.04 10^3/uL (0.02-0.10) 05/09/18 Unknown Absolute Nucleated RBC 0.00 10^3/uL (0-0.01) 05/09/18 Unknown Immature Gran % 0.3 % (0.0-1.1) 05/09/18 Unknown Immature Gran # 0.03 10^3/uL (0.00-0.10) 05/09/18 Unknown PT 14.2 SEC (12.0-15.0) 05/09/18 13:40 INR 1.08 (0.83-1.16) 05/09/18 13:40 APTT 32.6 SEC (23.0-38.0) 05/09/18 13:40 VBG Lactic Acid 1.0 mmol/L (0.7-2.1) 05/09/18 15:30 Sodium 142 mEq/L (135-145) 05/09/18 13:40 Potassium 3.8 mEq/L (3.3-5.0) 05/09/18 13:40 Chloride 104 mEq/L (97-110) 05/09/18 13:40 Carbon Dioxide 27 mEq/l (22-31) 05/09/18 13:40 Anion Gap 11 mEq/L (8-16) 05/09/18 13:40 BUN 9 mg/dL (7-23) 05/09/18 13:40 Creatinine 0.7 mg/dL (0.7-1.3) 05/09/18 13:40 Estimated GFR > 60 05/09/18 13:40 Glucose 97 mg/dL (70-100) 05/09/18 13:40 Calcium 9.8 mg/dL (8.5-10.4) 05/09/18 13:40 Total Bilirubin 0.7 mg/dL (0.1-1.4) 05/09/18 13:40 Conjugated Bilirubin 0.2 mg/dL (0.0-0.5) 05/09/18 13:40 Unconjugated Bilirubin 0.5 mg/dL (0.0-1.1) 05/09/18 13:40 AST 50 IU/L (17-59) 05/09/18 13:40 ALT 24 IU/L (21-72) 05/09/18 13:40 Alkaline Phosphatase 103 IU/L (38-126) 05/09/18 13:40 Troponin I < 0.012 ng/mL (0.000-0.034) 05/09/18 13:40 Total Protein 8.3 g/dL (6.3-8.2) H 05/09/18 13:40 Albumin 4.5 g/dL (3.5-5.0) 05/09/18 13:40 Lipase 294 IU/L (23-300) 05/09/18 13:40 Urine Color YELLOW 05/09/18 15:40 Urine Appearance CLEAR 05/09/18 15:40 Urine pH 5.0 (5.0-7.5) 05/09/18 15:40 Ur Specific [place] 1.019 (1.002-1.030) 05/09/18 15:40 Urine Protein 1+ (NEGATIVE) H 05/09/18 15:40 Urine Ketones TRACE (NEGATIVE) H 05/09/18 15:40 Urine Blood NEGATIVE (NEGATIVE) 05/09/18 15:40 Urine Nitrate NEGATIVE (NEGATIVE) 05/09/18 15:40 Urine Bilirubin NEGATIVE (NEGATIVE) 05/09/18 15:40 Urine Urobilinogen 2.0 EU (0.2-1.0) H 05/09/18 15:40 Ur Leukocyte Esterase NEGATIVE (NEGATIVE) 05/09/18 15:40 Urine RBC 1-3 /hpf (0-3) 05/09/18 15:40 Urine WBC 1-3 /hpf (0-3) 05/09/18 15:40 Ur Epithelial Cells NONE SEEN /lpf (NONE-1+) 05/09/18 15:40 Urine Mucus 2+ /lpf (NONE-1+) H 05/09/18 15:40 Urine Glucose NEGATIVE (NEGATIVE) 05/09/18 15:40 Urine Opiates Screen NEGATIVE (NEGATIVE) 05/09/18 15:40 Urine Barbiturates NEGATIVE (NEGATIVE) 05/09/18 15:40 Ur Phencyclidine Scrn NEGATIVE (NEGATIVE) 05/09/18 15:40 Ur Amphetamine Screen NEGATIVE (NEGATIVE) 05/09/18 15:40 U Benzodiazepines Scrn NON-NEGATIVE (NEGATIVE) H 05/09/18 15:40 Urine Cocaine Screen NEGATIVE (NEGATIVE) 05/09/18 15:40 U Marijuana (THC) Screen NON-NEGATIVE (NEGATIVE) H 05/09/18 15:40 Ethyl Alcohol < 10 mg/dL (0-10) 05/09/18 13:40 Visualized and Interpreted Chest x-ray results: Yes Chest X-Ray results: infiltrate (LLL, prominent pulm vasculature c/w pulm htn) Visualized and Interpreted imaging results: Yes Interpretation: head CT: negative Assessment & Plan Assessment: 62 yo M with PMH of PSA/IVDA presenting with AMS, acute hypoxic respiratory failure in setting of presumably pna # acute encephalopathy: suspect this was related to opiate/drug intoxication. Utox negative however patient admits he uses a variety of things when he shoots up and suspect he was utilizing some form of synthetic opioid that does not show on standard utox. He is more alert and interactive currently, will continue to monitor # acute hypoxic respiratory failure: with o2 sats in the mid to low 80s on arrival, presumably due to PNA as well as likely contribution of his AMS as above # PNA: with a LLL infiltrate in the setting of hypoxia and productive cough c/w PNA, he does not meet criteria for sepsis currently, started on azithromycin and ceftriaxone for now, will get procalcitonin, this could certainly be an aspiration pna given recurrent vomiting prior to admit # abd pain/n/v: currently with a benign abdominal exam, LFTs, lipase wnl, will monitor for now # IVDA: ongoing issue for this patient despite being on methadone, likely will need to inform methadone clinic of his use of heroin etc # hep C: with normal lft's currently # suicidal ideation: seems more passive however unclear if patient may have attempted OD prior to admission, would be prudent to have TLC eval when more awake/medically clear, will not place on M1 hold at this time # IP status, multiple active issues will require > 48 hours stay Patient new to my care. Old records reviewed and summarized as above.
[2018-05-09] MEDS ORDERED: SODIUM CL NASAL GEL 14.1 GM TUBE TP PRN (16:55)
--- NOTE | 2018-05-09 17:02 | ASMTLACE ---
BOBBY Acuity / Level of Answers: Yes Care: Did the patient have an inpatient admission? Comorbidities - select Answers: Coronary Artery Disease all that apply Moderate or severe liver or renal disease Opioid dependence / Chronic pain Previous myocardial infarction Other Notes: HTN, peripheral neuropathy # of Emergency department Answers: 1-2 visits in the last 6 months Social determinants Answers: History of substance abuse (ETOH, street drugs, prescription drugs, etc.) Lack of community resources and/or lack of social support (no pcp, lives alone, transportation, dennis d) Score: 23 Date Signed: 05/09/2018 05:01 PM Electronically Signed By:Ashely Samuels RN
--- NOTE | 2018-05-09 17:18 | PDMN ---
Medical Necessity Medical necessity: Pt meets IP criteria per & MCG M-282; est los >2 mn for eval/tx of pneumonia w/acute hypoxic respiratory failure, acute encephalopathy, abdominal pain & suicidal ideation; admit for further workup/monitoring, IV abx & TLC evaluation; hx IV drug use, hep C
--- NOTE | 2018-05-09 17:23 | ASMTCMCOM ---
CM Note CM Note Notes: Pt presented to the ED via EMS after being found unresponsive and with narcotics around him. Pt admitted for AMS, hypoxia, PNA and polypharmacy substance abuse. Pt states he is seen at a pain clinic and is on methadone but also reports using drugs (heroin, oxycodone or synthetic opioids) over the past week. Pt also reports drinking alcohol. Pt has been homeless in the past (has stayed at [facility]) but currently reports living in an apartment through [address]; but he is concerned he may lose his apartment due to his drug use. Pt was admitted in Aug 2016 and discharged to [facility]. Per chart review, pt has been followed by [facility] (at the [facility]) in the past. Exact DC needs TBD. CM to follow. Date Signed: 05/09/2018 05:22 PM Electronically Signed By:Ashely Samuels RN
[2018-05-09] MEDS: IPRATROPIUM/ALBUTEROL 3 ML DEYVIAL IH SCH (17:36)
[2018-05-10] MEDS: IPRATROPIUM/ALBUTEROL 3 ML DEYVIAL IH SCH ×5 (01:44→20:45)
[2018-05-10 05:01] LABS: PLATELET COUNT 194 10^3/uL (150-400)
[2018-05-10] MEDS: AZITHROMYCIN IV 500 MG in NS 250 ML IV SCH (08:02)
[2018-05-10] MEDS ORDERED: IBUPROFEN 200 MG TAB PO PRN (09:09)
[2018-05-10] MEDS: METHADONE HCL 10 MG/ML UDSYR PO SCH (11:04)
--- NOTE | 2018-05-10 15:28 | ASMTCMCOM ---
CM Note CM Note Notes: According to pt's hospitalist, pt is not suicidal at this time and is much clearer cognitively than on admission. Pt will need several more days of inpatient status to treat pneumonia and hospitalist feels it would be prudent to reconnect pt with [facility] further along in his inpatient stay when he is feeling better. Please read CM note from 05/09 for important psychosocial information about patient. D/C Plan: TBD Date Signed: 05/10/2018 03:27 PM Electronically Signed By:Meghna Craft
[2018-05-10] MEDS: METHOCARBAMOL 750 MG TAB PO SCH ×2 (15:40→22:36)
--- NOTE | 2018-05-10 19:55 | HOSPPROG ---
Hospitalist Progress Note Assessment/Plan: DIAGNOSES: * acute pneumonia, community acquired * acute hypoxemic respiratory failure * acute overdose with narcotic requiring Narcan in the ER here for unresponsiveness and inadequate respiration, uncertain whether this was all due to increase in his methadone by his methadone clinic, or whether he might have used any heroin * chronic back and leg pain from injuries * chronic narcotic dependence with long history of use of IV heroin; patient started on prescription narcotics when he had his back injury 20 years ago has been on narcotics since that time * patient at local [facility] for past 2 months In reviewing his situation it sounds like he started methadone 2 months ago, in an attempt to get away from her when. He has been on slowly increasing doses. He was on 90 mg daily for approximately 1 month and then increased to 95 mg daily approximately 5 days before this admission. Initially last night when he was aroused by Narcan he was still drowsy but told Dr. Delcid that he had used some heroin. Today well he is wide awake and oriented, he does not recall using any heroin in the last few days but says he used at sometime in the last week or 2. He states that he has done much better with very minimal use of heroin while the been titrating his methadone dose up but he has had a few hits. last night the patient admitted that he has past history of suicide attempts and there was concern about whether he may have some suicidal ideation or whether last night's episode might have been a suicidal attempt. As I review in detail with the patient he is very clear that he has no recent suicidal ideation, and states very directly that if he wanted to kill himself he would be by now as he would have no trouble doing if that were his desire. He does have chronic mental health issues and says that these are currently stable. He is not taking any medication because he does not like the medicines and did not find them very helpful. He has been over time engage with [facility] but not currently visiting them. PLANS: * Continue respiratory care * Continue current antibiotics follow cultures * I have started his methadone at a slightly lower dose at 85 mg and will follow closely here; will review with his methadone clinic physicians * Have placed him on some clonidine to 10 to any possible withdrawal he if he has been using more heroin than he is admitting to * I do not think he needs and acute inpatient mental health assessment at this time but will follow this closely; would definitely trying get him reconnected with [facility] when he is discharged SUBJECTIVE: Still feels very weak and tired but much more alert than yesterday Some shortness of breath No significant pain or discomfort OBJECTIVE Vitals reviewed: Stable without fever Monologist, my review: Exam: alert oriented skin warm dry color ok resps not labored lungs clear BSs heart regular abd soft nondistended nontender, bowel sounds present limbs warm, no edema See my assessment above of his mental health issues in status iv site ok Lab data: Stable CBC and basic metabolic panel Microbiology: Cultures pending Objective: Vital Signs Temp Pulse Resp BP Pulse Ox 36.8 C 66 12 101/76 93 05/10/18 19:06 05/10/18 19:06 05/10/18 19:06 05/10/18 19:06 05/10/18 19:06 Microbiology 05/09/18 17:25 Respiratory Panel (PCR) - Final Nasal, Sinus - Swab No Organism Detected Laboratory Results 05/10/18 04:36 05/10/18 04:36 05/09/18 05/10/18 05/11/18 06:59 06:59 06:59 Intake Total 500 Balance 500 PT 14.2 SEC (12.0-15.0) 05/09/18 13:40 INR 1.08 (0.83-1.16) 05/09/18 13:40 - Time Spent With Patient Time Spent with Patient: greater than 35 minutes Time Spent with Patient: Greater than 35 minutes spent on this patients care, greater than 50% of time spent counseling, educating, and coordinating care regarding the above mentioned plan. ICD10 Worksheet Patient Problems: Problems Problem Status Onset Hypoxemia Acute Pneumonia Acute Polysubstance abuse Acute Chronic pain Acute Closed fracture of condylar process of mandible Acute Jaw pain Acute MRSA (methicillin resistant Staphylococcus aureus) Acute 08/08/16 Neck pain Acute Retropharyngeal abscess Acute
[2018-05-10] MEDS: LORazepam 0.5 MG TAB PO PRN (22:36)
[2018-05-11] MEDS: IPRATROPIUM/ALBUTEROL 3 ML DEYVIAL IH SCH ×4 (05:35→21:08)
[2018-05-11] MEDS: METHADONE HCL 10 MG/ML UDSYR PO SCH (10:25)
[2018-05-11] MEDS: METHOCARBAMOL 750 MG TAB PO SCH ×3 (10:25→21:32)
[2018-05-11] MEDS: AZITHROMYCIN IV 500 MG in NS 250 ML IV SCH (11:16)
--- NOTE | 2018-05-11 15:10 | ASMTCMCOM ---
CM Note CM Note Notes: Spoke w/pt about scheduling appt with spring encaser Yeny (sp?) [phone] at [facility]. CM offererd to make appt but pt declined, did not want to sign ROR. Pt states he will call and make appt at discharge. PT cleared pt for home, anticipate pt will dc home independent when medically stable. CM available for any changes DC Plans: Independent Date Signed: 05/11/2018 03:10 PM Electronically Signed By:Flores Hatch RN
--- NOTE | 2018-05-11 17:26 | HOSPPROG ---
Hospitalist Progress Note Assessment/Plan: DIAGNOSES: * acute pneumonia, community acquired * acute hypoxemic respiratory failure * acute overdose with narcotic requiring Narcan in the ER here for unresponsiveness and inadequate respiration, uncertain whether this was all due to increase in his methadone by his methadone clinic, or whether he might have used any heroin * chronic back and leg pain from injuries * chronic narcotic dependence with long history of use of IV heroin; patient started on prescription narcotics when he had his back injury 20 years ago has been on narcotics since that time * patient at local [facility] for past 2 months In reviewing his situation it sounds like he started methadone 2 months ago, in an attempt to get away from her when. He has been on slowly increasing doses. He was on 90 mg daily for approximately 1 month and then increased to 95 mg daily approximately 5 days before this admission. Initially last night when he was aroused by Narcan he was still drowsy but told Dr. Delcid that he had used some heroin. Today well he is wide awake and oriented, he does not recall using any heroin in the last few days but says he used at sometime in the last week or 2. He states that he has done much better with very minimal use of heroin while the been titrating his methadone dose up but he has had a few hits. in the ER the patient admitted that he has past history of suicide attempts and there was concern about whether he may have some suicidal ideation or whether this episode might have been a suicidal attempt. As I review in detail with the patient he is very clear that he has no recent suicidal ideation, and states very directly that if he wanted to kill himself he would be by now as he would have no trouble doing if that were his desire. He does have chronic mental health issues and says that these are currently stable. He is not taking any medication because he does not like the medicines and did not find them very helpful. He has been over time engage with [facility] but not currently visiting them. PLANS: * Continue respiratory care * Continue current antibiotics follow cultures * I have started his methadone at a slightly lower dose at 85 mg and will follow closely here; resume with methadone clinic physicians at the time of discharge. He would prefer to stay on the current 85 mg but I reminded him that he has continued to use occasional heroin over the last 2 months on 85 and 90 mg and he may need more to achieve a goal of avoiding heroin * Have placed him on some clonidine to temper any potential withdrawal symptoms in case he has been using more heroin than he is admitting to me * I do not think he needs and acute inpatient mental health assessment at this time but will follow this closely; would definitely trying get him reconnected with [facility] when he is discharged SUBJECTIVE: Little change in his symptoms overall from yesterday Still short of breath and coughing Is not having any concerning symptoms of pain or withdrawal on his lower dose of methadone at this time and he feels he is getting enough OBJECTIVE Vitals reviewed: Stable without fever [employer], my review: Exam: alert oriented skin warm dry color ok resps not labored lungs clear BSs heart regular abd soft nondistended nontender, bowel sounds present limbs warm, no edema iv site ok Microbiology: Cultures pending Respiratory pathogen panel negative Objective: Vital Signs Temp Pulse Resp BP Pulse Ox 36.7 C 64 16 123/80 H 95 05/11/18 16:00 05/11/18 16:00 05/11/18 16:00 05/11/18 16:00 05/11/18 16:00 Laboratory Results 05/10/18 04:36 05/10/18 04:36 05/10/18 05/11/18 05/12/18 06:59 06:59 06:59 Intake Total 500 Balance 500 PT 14.2 SEC (12.0-15.0) 05/09/18 13:40 INR 1.08 (0.83-1.16) 05/09/18 13:40 ICD10 Worksheet Patient Problems: Problems Problem Status Onset Hypoxemia Acute Pneumonia Acute Polysubstance abuse Acute Chronic pain Acute Closed fracture of condylar process of mandible Acute Jaw pain Acute MRSA (methicillin resistant Staphylococcus aureus) Acute 08/08/16 Neck pain Acute Retropharyngeal abscess Acute
[2018-05-12] MEDS: IPRATROPIUM/ALBUTEROL 3 ML DEYVIAL IH SCH ×5 (06:22→22:23)
[2018-05-12] MEDS: AZITHROMYCIN IV 500 MG in NS 250 ML IV SCH (09:22)
[2018-05-12] MEDS: METHOCARBAMOL 750 MG TAB PO SCH ×3 (09:23→21:21)
[2018-05-12] MEDS: METHADONE HCL 10 MG/ML UDSYR PO SCH (09:46)
[2018-05-12] MEDS ORDERED: METHADONE HCL 10 MG/ML UDSYR PO SCH (10:10)
--- NOTE | 2018-05-12 10:17 | HOSPPROG ---
Hospitalist Progress Note Assessment/Plan: 62 yo admitted with AMS and found to have pneumonia likely from oversedation from methadone and heroin use. * acute pneumonia, community acquired with acute hypoxic raspatory failure, at risk for aspiration. Still with oxygen requirement. * Continue antibiotics * Likely secondary COPD exacerbation * Will need additional midnight stay. # Probable COPD contributing to his his hypoxia * Add duonebs, consider steroid. * Follow-up oxygen needs # acute overdose with narcotics required Narcan in the emergency department. * Continue methadone, he admits that he was only on 80 mg and not 90 today. Will decrease dose accordingly * He will follow up with [facility] after discharge will not prescribe on discharge # depression: Not suicidal at this time. Will try to set up follow-up with [facility] after discharge he will also follow up with [facility] # chronic back and leg pain Subjective: Patient new to me and chart reviewed, wants to go home but still has high oxygen requirements. Admits to smoking a few cigarettes per day. Admits to IV heroin use in addition to his methadone Objective: Vital Signs Temp Pulse Resp BP Pulse Ox 36.6 C 65 16 147/91 H 91 L 05/12/18 08:00 05/12/18 08:00 05/12/18 08:00 05/12/18 09:23 05/12/18 08:00 Laboratory Results 05/10/18 04:36 05/10/18 04:36 05/11/18 05/12/18 05/13/18 05:59 05:59 05:59 Intake Total 350 Balance 350 PT 14.2 SEC (12.0-15.0) 05/09/18 13:40 INR 1.08 (0.83-1.16) 05/09/18 13:40 - Physical Exam Constitutional: chronically ill appearing Eyes: PERRL, anicteric sclera Ears, Nose, Mouth, Throat: moist mucous membranes, hearing normal Cardiovascular: regular rate and rhythym Respiratory: no respiratory distress, reduced air movement, inspiratory crackles Gastrointestinal: normoactive bowel sounds, soft, non-tender abdomen, no palpable masses Skin: warm, normal color Neurologic: AAOx3 Psychiatric: interacting appropriately ICD10 Worksheet Patient Problems: Problems Problem Status Onset Jaw pain Acute Closed fracture of condylar process of mandible Acute Neck pain Acute Retropharyngeal abscess Acute MRSA (methicillin resistant Staphylococcus aureus) Acute 08/08/16 Chronic pain Acute Polysubstance abuse Acute Hypoxemia Acute Pneumonia Acute
[2018-05-12] MEDS: LORazepam 0.5 MG TAB PO PRN (19:36)
[2018-05-12] MEDS ORDERED: MELATONIN 3 MG TAB PO PRN (22:51)
[2018-05-13] MEDS: IPRATROPIUM/ALBUTEROL 3 ML DEYVIAL IH SCH ×2 (05:54→11:38)
[2018-05-13] MEDS: LORazepam 0.5 MG TAB PO PRN (09:02)
[2018-05-13] MEDS: METHOCARBAMOL 750 MG TAB PO SCH (09:03)
[2018-05-13] MEDS: AZITHROMYCIN IV 500 MG in NS 250 ML IV SCH (10:00)
[2018-05-13 11:47] VITALS: BP 139/87
--- NOTE | 2018-05-13 11:49 | PDHOMEO2F ---
Home Oxygen Face to Face Home Orders: I certify that a physician or a nurse practitioner or physician's computer lab assistant has had a [id number] encounter with this patient on the date of this order due to the diagnosis listed, which relates to the primary reason the patient requires home oxygen. Alternative treatments have been tried, or considered, and deemed ineffective. It is anticipated that supplemental oxygen will result in improvement with treatment. Home oxygen qualifying diagnosis: pneumonia SpO2 on room air (%): 83 Frequency of home oxygen needed: continuous Home oxygen liters per minute: 2 Home oxygen delivery device: nasal cannula Concentrator: Yes E-tanks for mobility and back up: Yes If ordering portable O2, is the patient mobile in the home?: Yes I certify that, based on these findings, the home oxygen is medically necessary for this patient for the following length of time. Length of time home oxygen needed: 1 week (needs reassessment in 1 month)
--- NOTE | 2018-05-13 11:53 | PDIAF ---
- Diagnosis Diagnosis: pneumonia, back surgery, methadone use, hx IVDU Code Status: Full Code - Medication Management Discharge Medications: Medications to Continue on Transfer Albuterol [Proventil Inhaler HFA (*)] 2 puffs IH Q4HRS PRN #1 mdi 08/17/16 [ Last Taken Unknown] Naloxone HCl [Narcan] 0 mg IVP PRN PRN #7 inj 08/17/16 [Last Taken Unknown] Sodium Cl Nasal Gel [[place] Saline Nasal Gel] 1 tania TP TID PRN 30 Days gel [Last Taken Unknown] Amoxicillin/Clavulanate Pot [Augmentin 875 MG TAB (*)] 875 mg PO BID #10 tab 05/22 [Last Taken Unknown] Ibuprofen [Motrin (*)] 400 mg PO Q6HRS PRN tab 05/13/18 [Last Taken Unknown] Methadone HCl [Dolophine Intensol 10 mg/ml (*)] 80 mg PO DAILY #0 05/13/18 [ Last Taken 05/09/18] Methocarbamol [Robaxin 750 mg (*)] 750 mg PO TID #30 tab 05/13/18 [Last Taken Unknown] Discharge Medications: Refer to the Discharge Home Medication list for PRN reason. - Orders Services needed: Home Care, Registered Nurse, Certified Operations Controller, Physical Therapy, Occupational Therapy Home Care Face to Face: I certify that this patient was under my care and that I had the required [id number] encounter meeting the encounter requirements on the discharge day. My findings support the fact that the patient is homebound as defined in Home Care Face to Face Continued: CMS Chapter 7 Medicare Benefits Manual 30.1.1 , The condition of the patient is such that there exists a normal inability to leave home and consequently, leaving home would require a considerable and taxing effort. Isolation Type: None Diet Recommendation: no restrictions on diet Diet Texture: Regular Texture Diet Additional Instructions: Follow up with primary care provider this week. Follow up with [facility] tomorrow - Follow Up Care Current Providers and Referrals: NONE *PRIMARY CARE P,. [Primary Care Provider] - As per Instructions
--- NOTE | 2018-05-13 12:18 | GDS ---
DIAGNOSES: 1. Pneumonia at risk for aspiration. 2. Methadone use, chronic. 3. Intravenous drug use. 4. Hepatitis C. 5. Recent back surgeries with chronic pain. PROCEDURES: Head CT without contrast and chest x-ray. HOSPITAL COURSE: The patient came in. He is a 62-year-old who arrived via EMS for evaluation of alt ered mental status following a possible polysubstance overdose. He was found by EMS with narcotics a round them. When he came in, he was complaining of abdominal and chest pain. Evaluation, included a chest x-ray, which revealed a pneumonia. He was admitted to the hospital with pneumonia complicated by acute respiratory failure and likely COPD due to ongoing tobacco use. He was placed on appropria te antibiotics and over the course of hospitalization. He improved significantly, however, still nee ds oxygen at the time of discharge. He had no other complications; however, is on chronic methadone use and that was continued to his hospitalization. He will follow up with his clinic tomorrow to res ume his medications. CONDITION ON DISCHARGE: Good. He is slightly hypertensive, but otherwise he has been afebrile. He is alert and oriented. DISCHARGE MEDICATIONS: Please see discharge medication form. FOLLOWUP: Will be with his primary care provider within this week. He should also follow up with our [facility] methadone clinic. Total time since patient on day of discharge and coordination of care is 35 minutes. /[id number]/MODL
--- NOTE | 2018-05-13 14:21 | ASMTCMCOM ---
CM Note CM Note Notes: Patient medically cleared for discharge to home. He has services ordered. He is current with [facility] but is unable to provide many details. He is also current with [facility] and [facility]. He will discharge on oxygen. He is coherent and able to converse. He states he can call me with information when he gets home. He is reluctant at this point for me to arrange alternative home care. He has a friend that can transport him. CM to follow up with [facility] tomorrow. Plan: Home with oxygen and HHC Date Signed: 05/13/2018 02:20 PM Electronically Signed By:Sana West RN
== END 2018-05-13 14:20 | disposition home health service (06) | DRG 133 ==
LOC: EDUNIT# → OBSVTOIN 16:55 → F3E 16:57
PROVIDERS: ADMIT Internal Medicine; ATTEND Internal Medicine
DX: J96.01 Acute respiratory failure with hypoxia (principal); J18.8 Other pneumonia, unspecified organism; E86.9 Volume depletion, unspecified; T40.601A Poisoning by unspecified narcotics, accidental (unintentional), initial encounter; F11.288 Opioid dependence with other opioid-induced disorder; J44.9 Chronic obstructive pulmonary disease, unspecified; F12.90 Cannabis use, unspecified, uncomplicated; B19.20 Unspecified viral hepatitis C without hepatic coma; I10 Essential (primary) hypertension; I25.2 Old myocardial infarction; G89.29 Other chronic pain; Z72.0 Tobacco use; Z95.5 Presence of coronary angioplasty implant and graft
CPT/HCPCS: 80305; 96365; 97116-GP; 97161-GP; 97165-GO; 97530-GO; 97530-GP; 97535-GO; G0480; J0456; J0696; J1956

== ENCOUNTER 2018-09-09 08:34 | Emergency (ER) | payer MEDICAID ==
--- NOTE | 2018-09-09 08:54 | EDPHY ---
H & P Stated Complaint: Slipped and fell onto R knee Time Seen by Provider: 09/09/18 08:51 HPI/ROS: CHIEF COMPLAINT: Right knee pain HISTORY OF PRESENT ILLNESS: The patient presents to the ED with pain to his right knee after he slipped and fell landing on his patella approximately 3 hr ago. 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 He typically walks with a brace and walker. The patient does have a complicated past medical history and has had MRSA requiring debridement in his neck. The patient denies any additional traumatic injuries from his fall today. He denies any acute numbness or weakness. He denies additional acute complaints. REVIEW OF SYSTEMS: A comprehensive 10 point review of systems is otherwise negative aside from elements mentioned in the history of present illness. Source: Patient Exam Limitations: No limitations - Personal History Tetanus Vaccine Date: 2015 - Medical/Surgical History Hx Asthma: No Hx Chronic Respiratory Disease: No Hx Diabetes: No Hx Cardiac Disease: Yes Hx Renal Disease: No Hx Cirrhosis: No Hx Alcoholism: No Hx HIV/AIDS: No Hx Splenectomy or Spleen Trauma: No Other PMH: HTN, 3 TX'S, STENTS X2, HEP C, spinal surgery, chronic pain, MRSA, R leg surgery "tumor removed" - Social History Smoking Status: Heavy smoker - Physical Exam Exam: General Appearance: Alert, no distress Head: Atraumatic Eyes: Pupils equal, round, reactive ENT, Mouth: No hemotympanum, no oral trauma Neck: Nontender, trachea midline Respiratory: No chest wall tender, no subcutaneous air, lungs clear bilaterally Cardiovascular: Regular rate and rhythm Abdomen: Abdomen is soft and nontender, pelvis stable Skin: No lacerations, No abrasion Back: No midline T/L/S pain Extremities: Tenderness to palpation over the right patella Constitutional: Initial Vital Signs Temperature (C) 36.6 C 09/09/18 08:43 Heart Rate 83 09/09/18 08:43 Respiratory Rate 18 09/09/18 08:43 Blood Pressure 155/101 H 09/09/18 08:43 O2 Sat (%) 97 09/09/18 08:43 O2 Delivery Mode Room Air Allergies/Adverse Reactions: acetaminophen [From Tylenol] Allergy (Intermediate, Verified 07/26/16 11:45) Vomiting Home Medications: Medication Instructions Recorded Ibuprofen 09/09/18 Medical Decision Making - Diagnostics Imaging Results: Right knee x-ray: 5 view series, images reviewed by myself. Impression: Vertical fracture noted involving the patella ED Course/Re-evaluation: Patient presents to the ED for evaluation of right knee pain following mechanical fall. The patient did have tenderness to palpation over his patella. The patient is noted to have a vertical fracture through the lateral aspect of the patella. The patient's extensor mechanism is intact. The patient currently has a leg brace. He will be advised to follow up with our on- call orthopedic surgeon. This is a fracture which should heal uneventfully. Differential Diagnosis: Differential diagnosis considered includes fracture, sprain, dislocation Departure - Departure Disposition: Home, Routine, Self-Care Clinical Impression: Patella fracture Qualifiers: Encounter type: initial encounter Fracture type: closed Fracture morphology: longitudinal Fracture alignment: nondisplaced Laterality: right Qualified Code(s ): S82.024A - Nondisplaced longitudinal fracture of right patella, initial encounter for closed fracture Condition: Good Instructions: Patellar Fracture (ED) Additional Instructions: 1. Wear knee immobilizer or leg splint until seen in follow-up by Orthopedic surgery. 2. Continue your regular pain medications. Take Ibuprofen or Motrin 600 mg by mouth three times a day. 3. Follow up with the orthopedic surgeon you have been referred to. Please contact their office on Monday to schedule a follow-up visit. Referrals: Homa Bishop MD [Medical Doctor] - As per Instructions
[2018-09-09 10:09] VITALS: BP 142/103
== END 2018-09-09 10:08 | disposition home or self-care (01) ==
LOC: EDUNIT#
DX: S82.024A Nondisplaced longitudinal fracture of right patella, initial encounter for closed fracture (principal); I10 Essential (primary) hypertension; W01.198A Fall on same level from slipping, tripping and stumbling with subsequent striking against other object, initial encounter; Y92.480 Sidewalk as the place of occurrence of the external cause